=== PATIENT | female | born 1945 | race Caucasian/White ===

== ENCOUNTER 2018-03-05 00:25 | Outpatient (CLI) | payer OTHER, SELFPAY ==
--- NOTE | 2018-03-05 09:36 | DI.MAMMO_ITS ---
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 Comparison with prior examinations. Breast density C. No masses or microcalcifications are seen. There is nothing to suggest malignancy. IMPRESSION: Negative mammogram. Routine screening is recommended. Category I. MQSA ASSESSMENT OF FINDINGS: Negative. Category 1. Patient will receive a letter notifying them of these results. Bi-RADS category C. The breasts are heterogeneously dense, which may obscure small masses.
== END 2018-03-05 00:45 ==
PROVIDERS: PCP Nurse Practitioner Family; Visit Provider Nurse Practitioner Family
DX: Z12.31 Encounter for screening mammogram for malignant neoplasm of breast (principal); D05.10 Intraductal carcinoma in situ of unspecified breast
CPT/HCPCS: 77063; 77067

== ENCOUNTER 2018-04-03 10:53 | Outpatient (REF) | payer OTHER, SELFPAY ==
[2018-04-03 12:19] LABS: Cholesterol 203 mg/dL (50-200); HDL Cholesterol 69 mg/dL (40-60); LDL CHOLESTEROL 121 mg/dL (<100); TSH (W/Ref FT4) 0.37 uIU/mL (0.358-3.74); Triglyceride 56 mg/dL (30-150)
[2018-04-03 14:34] LABS: Vitamin D 25 Total 14.8 ng/ml (30-100)
== END 2018-04-03 11:13 ==
LOC: NCHCN 10:53
PROVIDERS: PCP Nurse Practitioner Family; Visit Provider Nurse Practitioner Family
DX: E55.9 Vitamin D deficiency, unspecified (principal); R76.0 Raised antibody titer; M25.561 Pain in right knee; M19.90 Unspecified osteoarthritis, unspecified site; M25.50 Pain in unspecified joint; D05.10 Intraductal carcinoma in situ of unspecified breast; E66.9 Obesity, unspecified
CPT/HCPCS: 80061; 82306; 83721; 84443

== ENCOUNTER 2018-09-18 10:49 | Outpatient (REF) | payer OTHER, SELFPAY ==
[2018-09-18 21:44] LABS: Vitamin D 25 Total 20.6 ng/ml (30-100)
== END 2018-09-18 11:09 ==
LOC: NCHCN 10:49
PROVIDERS: PCP Nurse Practitioner Family; Visit Provider Nurse Practitioner Family
DX: E55.9 Vitamin D deficiency, unspecified (principal); E78.5 Hyperlipidemia, unspecified; E03.9 Hypothyroidism, unspecified; R60.0 Localized edema
CPT/HCPCS: 82306

== ENCOUNTER 2019-03-09 00:28 | Outpatient (CLI) | payer OTHER, SELFPAY ==
--- NOTE | 2019-03-09 10:00 | DI.MAMMO_ITS ---
SYMPTOM/DIAGNOSIS: DUCTAL CARCINOMA IN SITU D05.10, SCREENING Z12.31 MAMMOGRAM: 03/09 Mammograms were interpreted according to the usual protocol including computer analysis with CAD system, tomosynthesis and C view imaging. The breasts are heterogeneously dense. The patient has reportedly had a prior right lumpectomy for breast carcinoma. No mass or clumped microcalcification identified in either breast. The current examination is compared with previous examinations including Mar 2018 and there has been no gross interval change in appearance in comparison with the previous studies. CONCLUSION: No specific evidence of malignancy at this time. Routine screening examinations are suggested at yearly intervals due to the family history of breast carcinoma. Category 1, breast density category C. SA ASSESSMENT OF FINDINGS: Negative. Category 1. Patient will receive a letter notifying them of these results. Bi-RADS category C. The breasts are heterogeneously dense, which may obscure small masses.
== END 2019-03-09 00:48 ==
PROVIDERS: PCP Nurse Practitioner Family; Visit Provider Nurse Practitioner Family
DX: Z12.31 Encounter for screening mammogram for malignant neoplasm of breast (principal); D05.11 Intraductal carcinoma in situ of right breast; Z80.3 Family history of malignant neoplasm of breast; Z85.3 Personal history of malignant neoplasm of breast
CPT/HCPCS: 77063; 77067

== ENCOUNTER 2019-04-09 10:42 | Outpatient (REF) | payer OTHER, SELFPAY ==
[2019-04-09 13:02] LABS: Calculated LDL 139 mg/dL; Cholesterol 220 mg/dL (50-200); HDL Cholesterol 69 mg/dL (40-60); TSH (W/Ref FT4) 0.24 uIU/mL (0.36-3.74); Triglyceride 60 mg/dL (30-150)
[2019-04-09 13:15] LABS: Vitamin D 25 Total 17.8 ng/ml (30-100)
[2019-04-09 15:14] LABS: FREE T4 1.32 ng/dL (0.76-1.46)
== END 2019-04-09 11:02 ==
LOC: NCHCN 10:42
PROVIDERS: PCP Nurse Practitioner Family; Visit Provider Nurse Practitioner Family
DX: Z00.00 Encounter for general adult medical examination without abnormal findings (principal); E78.5 Hyperlipidemia, unspecified; E03.9 Hypothyroidism, unspecified; E55.9 Vitamin D deficiency, unspecified; N39.3 Stress incontinence (female) (male); K30 Functional dyspepsia; R60.0 Localized edema; M19.90 Unspecified osteoarthritis, unspecified site
CPT/HCPCS: 80061; 82306; 84439; 84443

== ENCOUNTER 2019-05-22 10:24 | Outpatient (REF) | payer OTHER, SELFPAY ==
[2019-05-22 21:17] LABS: TSH (W/Ref FT4) 0.67 uIU/mL (0.36-3.74)
== END 2019-05-22 10:44 ==
LOC: NCHCN 10:24
PROVIDERS: PCP Nurse Practitioner Family; Visit Provider Nurse Practitioner Family
DX: E03.9 Hypothyroidism, unspecified (principal)
CPT/HCPCS: 84443

== ENCOUNTER 2020-01-15 09:39 | Outpatient (CLI) | payer OTHER, SELFPAY ==
--- NOTE | 2020-01-15 13:12 | DI.RAD_ITS ---
EXAM: XR TIB/FIB LT CLINICAL HISTORY: KNEE PAIN M25.561, CHRONIC LEG PAIN M79.606 TECHNIQUE: COMPARISON: CR XR ANKLE RT COMPLETE from 01/15/2020 CR XR KNEE RT 3V AP,LAT,LEMUEL from 01/15/2020 CR XR KNEE LT 3V AP,LAT,LEMUEL from 01/15/2020 CR XR ANKLE LT COMPLETE from 01/15/2020 FINDINGS: Lower extremity views were obtained including three views of the knee, two views of the leg, and thre e views of the ankle. There is moderate narrowing of the medial and lateral tibiofemoral cartilaginous joint space and jason llofemoral cartilaginous joint space. There are prominent hypertrophic marginal osteophytes involvin g all 3 joints of the knee. There is an approximately 1 cm in diameter ossific body projected piledriver carpenter iorly which may represent intra-articular loose body or which could be extra-articular. No other significant abnormality of the tibia or fibula. The ankle mortise is well maintained. The tibiotalar and talofibular joints are well maintained. Th ere are moderate degenerative changes of the joints of the midfoot and there are small attachment ost eophytes the plantar fascia and Achilles insertions on the calcaneus. IMPRESSION: Degenerative changes as described above predominantly involving the joints of the knee.
--- NOTE | 2020-01-15 13:12 | DI.RAD_ITS ---
EXAM: XR KNEE LT 3V AP,LAT,LEMUEL CLINICAL HISTORY: KNEE PAIN M25.561 TECHNIQUE: COMPARISON: CR XR ANKLE RT COMPLETE from 01/15/2020 CR XR TIB/FIB RT from 01/15/2020 CR XR KNEE RT 3V AP,LAT,LEMUEL from 01/15/2020 FINDINGS: Three views of the knee, two views of the leg, and three views of the ankle were obtained. There are moderate degenerative changes of all 3 joints of the knee with cartilaginous joint space narrowing a nd marginal osteophyte formation. No additional significant findings involving the tibia or fibula. The ankle mortise is well maintained. No significant degenerative changes involving the tibiotalar and talofibular joints. Moderate degenerative changes of the midfoot noted. Attachment osteophytes of the calcaneus at Achilles and plantar fascia insertions noted. IMPRESSION: Degenerative changes as described above, predominantly involving the knee.
== END 2020-01-15 09:59 ==
PROVIDERS: PCP Nurse Practitioner Family; Visit Provider Nurse Practitioner Family
DX: M25.561 Pain in right knee (principal); M17.0 Bilateral primary osteoarthritis of knee; M19.071 Primary osteoarthritis, right ankle and foot; M19.072 Primary osteoarthritis, left ankle and foot; M79.606 Pain in leg, unspecified
CPT/HCPCS: 73562; 73590; 73610

== ENCOUNTER 2020-05-23 09:20 | Outpatient (REF) | payer OTHER, SELFPAY ==
[2020-05-23 22:16] LABS: TSH (W/Ref FT4) 3.94 uIU/mL (0.36-3.74)
[2020-05-23 22:33] LABS: FREE T4 1.05 ng/dL (0.76-1.46)
[2020-05-23 23:19] LABS: Vitamin D 25 Total 16.9 ng/ml (30-100)
== END 2020-05-23 09:40 ==
LOC: NCHCN 09:20
PROVIDERS: PCP Nurse Practitioner Family; Visit Provider Nurse Practitioner Family
DX: Z00.00 Encounter for general adult medical examination without abnormal findings (principal); E55.9 Vitamin D deficiency, unspecified; E03.9 Hypothyroidism, unspecified; K30 Functional dyspepsia
CPT/HCPCS: 82306; 84439; 84443

== ENCOUNTER 2020-06-01 01:11 | Outpatient (CLI) | payer OTHER, SELFPAY ==
--- NOTE | 2020-06-01 | DI.MAMMO_ITS ---
EXAM: MG MAMMO SCREENING 60 MIN DUR CLINICAL HISTORY: PERSONAL H/O BREAST CA,Z85.3, SCREENING. TECHNIQUE: Bilateral full field digital CC and MLO mammographic images were obtained with 3D tomosyn thesis and utilizing computer aided detection (CAD). COMPARISON: Prior mammograms dating back to 2010, the most recent being March 2019. Prior left breast ultrasound October 2009 was reviewed. This patient had prior right lumpectomy for malignancy FINDINGS: Fibroglandular tissue is moderately dense, this decreasing the sensitivity of the mammogram for findi ng in underlying lesions There are no new significant radiograph findings in the left breast. In the right breast there is-in of a noncalcified nodule measuring 5 x 4 millimeters, located approxi mately 5 centimetres in from the nipple. More evident than on prior studies and also seen on 3D imag ing. There are no malignant-appearing microcalcifications groups in this region nor elsewhere in eit her breast. There is no new architectural distortion nor skin thickening-retraction. IMPRESSION: Moderately dense fibroglandular tissue. No radiographic evidence of malignancy in the left breast. Subtle noncalcified lobulated right breast nodule. Additional spot compression view performed today' s equivocal. Breast ultrasound recommended. BI-RADS Category 0 - Assessment Incomplete: Need additional imaging evaluation Breast Density - Category C - Heterogeneously dense Breast density Category C or D implies that the patient has dense breast tissue. Dense breast tissue can make it harder to find cancer on a mammogram. Dense breast tissue is also associated with an incr eased risk of breast cancer. This information about the result of the mammogram report was provided to the patient to raise their awareness. Use this report when you speak with the patient about their risks for breast cancer, which includes their family history. At that time, you may recommend additional screening tests (Ultrasoun d or MRI) as these tests may add significant information. A negative radiographic report should not delay biopsy if a dominant or clinically suspicious mass is present. Up to ten percent of cancers are not identified on mammography. A negative report may reinforce clinical impression. Adenosis and dense breasts may obscure an underlying neoplasm. False positive reports average 6 to 10%. Patient will receive a letter notifying them of these results.
== END 2020-06-01 01:31 ==
PROVIDERS: PCP Nurse Practitioner Family; Visit Provider Nurse Practitioner Family
DX: Z12.31 Encounter for screening mammogram for malignant neoplasm of breast (principal); Z85.3 Personal history of malignant neoplasm of breast; N63.10 Unspecified lump in the right breast, unspecified quadrant
CPT/HCPCS: 77063; 77067

== ENCOUNTER 2020-06-08 01:39 | Outpatient (CLI) | payer OTHER, SELFPAY ==
--- NOTE | 2020-06-08 | DI.US_ITS ---
EXAM: US BREAST RT COMPLETE CLINICAL HISTORY: F/U MAMMO, RT BREAST NODULE TECHNIQUE: Ultrasound right breast performed using standard protocol. COMPARISON: Prior mammograms reviewed, most recent being 06/01/2020 FINDINGS: All 4 quadrants were scanned. There is no evidence of solid or significant cystic lesion. No findin gs in the immediate retroareolar region. IMPRESSION: Negative right breast ultrasound. Appropriate follow-up is keep this patient yearly mammogram schedule, with earlier imaging if a self detected breast changes noted. BI-RADS Category 2 - Benign Findings DATA REPOSITORY:
== END 2020-06-08 01:59 ==
PROVIDERS: PCP Nurse Practitioner Family; Visit Provider Nurse Practitioner Family
DX: R92.8 Other abnormal and inconclusive findings on diagnostic imaging of breast (principal)
CPT/HCPCS: 76642

== ENCOUNTER 2020-08-25 18:05 | Outpatient (REF) | payer OTHER, SELFPAY ==
[2020-08-25 13:54] LABS: FREE T4 1.02 ng/dL (0.76-1.46); TSH 4.65 uIU/mL (0.36-3.74)
== END 2020-08-25 18:06 | disposition home or self-care (01) ==
LOC: NCHCN 18:05
PROVIDERS: PCP Nurse Practitioner Family; Visit Provider Nurse Practitioner Family
DX: E03.9 Hypothyroidism, unspecified (principal)
CPT/HCPCS: 84439; 84443

== ENCOUNTER 2020-12-05 13:22 | Outpatient (REF) | payer OTHER, SELFPAY ==
[2020-12-05 13:13] LABS: TSH (W/Ref FT4) 1.37 uIU/mL (0.36-3.74)
[2020-12-05 13:27] LABS: Vitamin D 25 Total 15.9 ng/mL (30-100)
== END 2020-12-05 13:23 | disposition home or self-care (01) ==
LOC: NCHCN 13:22
PROVIDERS: PCP Nurse Practitioner Family; Visit Provider Nurse Practitioner Family
DX: E03.9 Hypothyroidism, unspecified (principal); E55.9 Vitamin D deficiency, unspecified
CPT/HCPCS: 82306; 84443

== ENCOUNTER 2021-05-26 14:51 | Outpatient (REF) | payer OTHER, SELFPAY ==
[2021-05-26 17:38] LABS: TSH (W/Ref FT4) 1.37 uIU/mL (0.36-3.74)
[2021-05-29 02:29] LABS: Vitamin D 25 Total 19.9 ng/mL (30-100)
== END 2021-05-26 14:52 | disposition home or self-care (01) ==
LOC: NCHCN 14:51
PROVIDERS: PCP Nurse Practitioner Family; Visit Provider Nurse Practitioner Family
DX: D05.10 Intraductal carcinoma in situ of unspecified breast (principal); E55.9 Vitamin D deficiency, unspecified
CPT/HCPCS: 82306; 84443

== ENCOUNTER 2021-07-19 01:32 | Outpatient (CLI) | payer OTHER, SELFPAY ==
--- NOTE | 2021-07-19 09:28 | DI.MAMMO_ITS ---
Exam(s) MG MAMMO SCREENING 60 MIN DUR EXAM: MG MAMMO SCREENING 60 MIN DUR CLINICAL HISTORY: SCREENING, Z12.31; H/O BREAST CA, Z85.3 TECHNIQUE: Mammograms were interpreted according to the usual protocol including computer analysis w [email or web address] CAD system, tomosynthesis and C-view imaging. COMPARISON: FINDINGS: The breasts are heterogeneously dense. No dominant mass or clumped microcalcification is identified in either breast. The current examination is compared with previous examinations including May 2020 and there has been no gross interval change in appearance in comparison with the prior studies. IMPRESSION: No specific evidence of malignancy at this time. Routine screening examinations are suggested at yea rly intervals due to the history of breast carcinoma. BI-RADS Category 1 - Negative Breast Density - Category C - Heterogeneously dense
== END 2021-07-19 01:52 ==
PROVIDERS: PCP Nurse Practitioner Family; Visit Provider Nurse Practitioner Family
DX: Z12.31 Encounter for screening mammogram for malignant neoplasm of breast (principal); R92.8 Other abnormal and inconclusive findings on diagnostic imaging of breast; Z85.3 Personal history of malignant neoplasm of breast
CPT/HCPCS: 77063; 77067

== ENCOUNTER 2021-07-31 15:55 | Outpatient (REF) | payer OTHER, SELFPAY ==
[2021-07-31 15:15] LABS: Anion Gap 6.3 mmol/L (3-11); BUN 15 mg/dL (7-18); CO2 30.7 mmol/L (21.0-32.0); CREATININE 0.6 mg/dL (0.55-1.02); Chloride 105 mmol/L (98-107); Glucose 82 mg/dL (74-106); Potassium 4.7 mmol/L (3.5-5.1); Sodium 142 mmol/L (136-145)
== END 2021-07-31 15:56 | disposition home or self-care (01) ==
LOC: NCHCN 15:55
PROVIDERS: PCP Nurse Practitioner Family; Visit Provider Nurse Practitioner Family
DX: E03.9 Hypothyroidism, unspecified (principal); R20.2 Paresthesia of skin; K30 Functional dyspepsia
CPT/HCPCS: 80048

== ENCOUNTER 2021-08-28 14:54 | Outpatient (REF) | payer OTHER, SELFPAY ==
[2021-08-28 15:34] LABS: Anion Gap 9.2 mmol/L (3-11); BUN 16 mg/dL (7-18); CO2 27.8 mmol/L (21.0-32.0); CREATININE 0.7 mg/dL (0.55-1.02); Calcium 9.3 mg/dL (8.5-10.1); Chloride 104 mmol/L (98-107); Glucose 120 mg/dL (74-106); Potassium 4.8 mmol/L (3.5-5.1); Sodium 141 mmol/L (136-145)
== END 2021-08-28 14:55 | disposition home or self-care (01) ==
LOC: NCHCN 14:54
PROVIDERS: PCP Nurse Practitioner Family; Visit Provider Nurse Practitioner Family
DX: I10 Essential (primary) hypertension (principal); E66.9 Obesity, unspecified
CPT/HCPCS: 80048

== ENCOUNTER 2021-09-11 11:36 | Outpatient (REF) | payer OTHER, SELFPAY ==
[2021-09-11 14:40] LABS: Calculated LDL 138 mg/dL (<100); Cholesterol 213 mg/dL (<200); HDL Cholesterol 59 mg/dL (40-60); Triglyceride 84 mg/dL (<150)
== END 2021-09-11 11:37 | disposition home or self-care (01) ==
LOC: NCHCN 11:36
PROVIDERS: PCP Nurse Practitioner Family; Visit Provider Nurse Practitioner Family
DX: I10 Essential (primary) hypertension (principal); E03.9 Hypothyroidism, unspecified; E78.5 Hyperlipidemia, unspecified; K30 Functional dyspepsia; E66.9 Obesity, unspecified; M25.59 Pain in other specified joint
CPT/HCPCS: 80061

== ENCOUNTER 2022-04-23 14:08 | Outpatient (REF) | payer OTHER, SELFPAY ==
[2022-04-23 15:56] LABS: TSH (W/Ref FT4) 0.35 uIU/mL (0.36-3.74)
[2022-04-23 16:15] LABS: FREE T4 1.23 ng/dL (0.76-1.46)
[2022-04-23 16:54] LABS: Vitamin D 25 Total 16.2 ng/mL (30-100)
== END 2022-04-23 14:09 | disposition home or self-care (01) ==
LOC: NCHCN 14:08
PROVIDERS: PCP Nurse Practitioner Family; Visit Provider Nurse Practitioner Family
DX: I10 Essential (primary) hypertension (principal); E55.9 Vitamin D deficiency, unspecified; E03.9 Hypothyroidism, unspecified; E78.5 Hyperlipidemia, unspecified
CPT/HCPCS: 82306; 84439; 84443

== ENCOUNTER 2022-07-23 11:14 | Outpatient (REF) | payer OTHER, SELFPAY ==
[2022-07-23 16:03] LABS: Anion Gap 6.4 mmol/L (3-11); BUN 16 mg/dL (7-18); CO2 30.6 mmol/L (21.0-32.0); CREATININE 0.7 mg/dL (0.55-1.02); Calcium 9.6 mg/dL (8.5-10.1); Chloride 105 mmol/L (98-107); Estimated GFR 90.14 (mL/min/1.73m2); Glucose 93 mg/dL (74-106); Potassium 5.1 mmol/L (3.5-5.1); Sodium 142 mmol/L (136-145); TSH (W/Ref FT4) 0.56 uIU/mL (0.36-3.74)
[2022-07-23 16:41] LABS: Vitamin D 25 Total 16.5 ng/mL (30-100)
== END 2022-07-23 11:15 | disposition home or self-care (01) ==
LOC: NCHCN 11:14
PROVIDERS: PCP Nurse Practitioner Family; Visit Provider Nurse Practitioner Family
DX: I10 Essential (primary) hypertension (principal); E55.9 Vitamin D deficiency, unspecified; R60.0 Localized edema
CPT/HCPCS: 80048; 82306; 84443

== ENCOUNTER 2022-08-01 02:37 | Outpatient (CLI) | payer OTHER, SELFPAY ==
--- NOTE | 2022-08-01 | DI.MAMMO_ITS ---
Exam(s) MG MAMMO SCREENING 60 MIN DUR EXAM: MAMMO SCREENING 60 MIN DUR CLINICAL HISTORY: SCREENING, PERSONAL H/O BREAST CA.Z12.31,Z85.3 TECHNIQUE: Mammograms were interpreted according to the usual protocol including computer analysis w [employer] CAD system, tomosynthesis and C-view imaging. COMPARISON: 2012 through 2021 FINDINGS: The breasts are composed of heterogeneously dense fibroglandular densities, Breast Density category C . No suspicious masses or suspicious microcalcifications are seen. No skin thickening or abnormal axillary lymph nodes are seen. There has been no significant change from prior exams. IMPRESSION: BI-RADS Category 1, Negative mammogram. Yearly screening mammography is recommended. Breast Density Category C, heterogeneously Dense. The mammogram demonstrates the patient's breast tissue is dense. Dense breast tissue is very common a nd is not abnormal but dense breast tissue can make it harder to find cancer on a mammogram. Also, de nse breast tissue may increase breast cancer risk. This information about the result of the mammogram report was provided to the patient to raise their awareness. Use this report when you speak with the patient about their risks for breast cancer, which includes their family history. At that time, you may recommend additional screening tests (Ultrasound or MRI) as they might be useful based on their r isk. A negative radiographic report should not delay biopsy if a dominant or clinically suspicious mass is present. Up to ten percent of cancers are not identified on mammography. A negative report may reinforce clinical impression. Adenosis and dense breasts may obscure an underlying neoplasm. False positive reports average 6 to 10%.
== END 2022-08-01 02:57 ==
PROVIDERS: PCP Nurse Practitioner Family; Visit Provider Nurse Practitioner Family
DX: Z12.31 Encounter for screening mammogram for malignant neoplasm of breast (principal); R92.8 Other abnormal and inconclusive findings on diagnostic imaging of breast
CPT/HCPCS: 77063; 77067

== ENCOUNTER 2022-12-03 14:21 | Outpatient (CLI) | payer OTHER, SELFPAY ==
--- NOTE | 2022-12-03 13:45 | DI.RAD_ITS ---
Exam(s) XR STANDING ALIGNMENT EXAM: XR STANDING ALIGNMENT CLINICAL HISTORY: eval alignment for TKA. TECHNIQUE: 2D digital imaging was performed. Four images were obtained. COMPARISON: CR XR KNEE RT 3V AP,LAT,LEMUEL from 01/15/2020 CR XR ANKLE RT COMPLETE from 01/15/2020 CR XR TIB/FIB RT from 01/15/2020 CR XR KNEE LT 3V AP,LAT,LEMUEL from 01/15/2020 FINDINGS: BONES: There is mild joint space narrowing of the hips bilaterally. [id number]-sv-qmukmanb degenerative ch anges of the hips are seen bilaterally characterized by joint space narrowing and periarticular spurr ing. The ankles are well maintained.There is no significant leg length discrepancy. SOFT TISSUE: Normal. IMPRESSION: [id number] osteoarthritis of the knees. DATA REPOSITORY: RADIATION DOSE DELIVERED:
== END 2022-12-03 14:22 | disposition home or self-care (01) ==
LOC: DIORS 14:21
PROVIDERS: PCP Nurse Practitioner Family; Referring Provider Nurse Practitioner Family; Visit Provider Student in an Organized Health Care Education/Training Program
DX: M17.0 Bilateral primary osteoarthritis of knee (principal)
CPT/HCPCS: 77073

== ENCOUNTER 2023-01-17 02:32 | Outpatient (CLI) | payer OTHER, SELFPAY ==
[2023-01-17 14:18] LABS: HCT 38.5 % (36.0-46.0); HGB 12.1 g/dL (11.2-15.7); MCH 27.9 pg (27.0-33.0); MCHC 31.4 % (32.0-36.0); MCV 89 fL (80-95); MPV 9.7 fL (8.0-11.0); Platelet Count 290 10^3/uL (130-400); RBC 4.33 10^6/uL (3.93-5.22); RDW 12.5 % (11.7-14.6); RDW-SD 40.9 fL; WBC 8.87 10^3/uL (4.4-10.8)
[2023-01-17 15:09] LABS: Anion Gap 7.1 mmol/L (3-11); BUN 16 mg/dL (7-18); CO2 27.9 mmol/L (21.0-32.0); CREATININE 0.8 mg/dL (0.55-1.02); Calcium 8.6 mg/dL (8.5-10.1); Chloride 107 mmol/L (98-107); Estimated GFR 76.31 (mL/min/1.73m2); Glucose 120 mg/dL (74-106); Potassium 4.1 mmol/L (3.5-5.1); Sodium 142 mmol/L (136-145)
== END 2023-01-17 02:33 | disposition home or self-care (01) ==
LOC: LBO 02:33
PROVIDERS: PCP Nurse Practitioner Family; Visit Provider Student in an Organized Health Care Education/Training Program
DX: M17.12 Unilateral primary osteoarthritis, left knee (principal); Z01.818 Encounter for other preprocedural examination
CPT/HCPCS: 36415; 80048; 85027

== ENCOUNTER 2023-01-17 13:12 | Outpatient (CLI) | payer OTHER, SELFPAY ==
--- NOTE | 2023-01-17 13:19 | DI.RAD_ITS ---
Exam(s) XR KNEE LT 1V EXAM: XR KNEE LT 1V CLINICAL HISTORY: pre op L TKA. TECHNIQUE: 2D digital imaging was performed of the left knee. Two images were obtained. Lateral vi ews views were obtained. COMPARISON: CR XR KNEE LT 3V AP,LAT,LEMUEL from 01/15/2020 CR XR STANDING ALIGNMENT from 12/03/2022 FINDINGS: This is a limited examination. Lateral views only were obtained with a marker ball. There again see n marked degenerative changes seen at the patellofemoral joint with loss of the joint space and peria rticular spurring. No joint effusion is seen. IMPRESSION: Limited examination with only lateral views. Marked osteoarthritis of the patellofemoral joint is no frantz. DATA REPOSITORY: RADIATION DOSE DELIVERED:
== END 2023-01-17 13:13 | disposition home or self-care (01) ==
LOC: DIORS 13:12
PROVIDERS: PCP Nurse Practitioner Family; Referring Provider Nurse Practitioner Family; Visit Provider Physician Assistant
DX: M17.12 Unilateral primary osteoarthritis, left knee (principal); Z01.818 Encounter for other preprocedural examination
CPT/HCPCS: 73560

== ENCOUNTER 2023-01-23 08:22 | Day surgery (SDC) | payer OTHER, SELFPAY ==
[2023-01-23] VITALS (14 sets, daily range): BP systolic 132–159; BP diastolic 61–89; PULSE 51–89; RESP 16–20; TEMP 36.2–37.1; O2SAT 94–98; BMI 32.4
--- NOTE | 2023-01-23 08:57 | W.ANESPRE ---
General Info Date of Service Date Performed: 01/23/23 Height: 5 ft 6 in Weight: 91.1 kg Body Mass Index (BMI): 32.4 Surgical Procedure: Operation Date: 01/23/23 11:10 Proposed Procedure Side Surgeon p Knee Total Arthroplasty, CEMENTLESS CR Left Andrea Box MD Meds Allergies and Home Medications Allergies Allergy/AdvReac Type Severity Reaction Status Date / Time erythromycin base AdvReac Intermediate Nausea Unverified 01/23/23 08:36 [Erythromycin Base] Home Medication Medication Instructions Recorded levothyroxine 25 mcg tablet 12.5 mcg PO DAILY 10/28/13 cetirizine 10 mg tablet 10 mg PO DAILY PRN 12/03/22 losartan 25 mg tablet 25 mg PO HS 12/03/22 acetaminophen 500 mg tablet 1,000 mg PO TID #90 tabs 01/23/23 aspirin 81 mg tablet,delayed 81 mg PO BID #60 tabs 01/23/23 release celecoxib 200 mg capsule 200 mg PO BID #60 caps 01/23/23 dexamethasone 4 mg tablet 4 mg PO DAILY #2 tabs 01/23/23 gabapentin 300 mg capsule 300 mg PO QHS #14 caps 01/23/23 oxycodone 5 mg tablet 5 mg PO Q4H PRN pain #20 tabs 01/23/23 pantoprazole 40 mg tablet,delayed 40 mg PO DAILY #30 tabs 01/23/23 release Current Visit Medications: Current Medications Generic Name Dose Route Start Last Admin Trade Name Freq PRN Reason Stop Dose Admin Acetaminophen 1,000 mg 01/23/23 06:00 Acetaminophen 500 Mg Tab PO 01/23/23 16:00 PREOP TERESA Acetaminophen 1,000 mg 01/23/23 07:25 Acetaminophen 500 Mg Tab PO 02/22/23 08:29 TID PRN Analgesia Celecoxib 400 mg 01/23/23 06:00 Celecoxib 200 Mg Cap PO 01/23/23 16:00 PREOP TERESA Docusate Sodium 100 mg 01/23/23 07:25 Docusate Sodium 100 Mg Cap PO 02/22/23 07:24 BID PRN PRN Constipation Gabapentin 300 mg 01/23/23 06:00 Gabapentin 300 Mg Cap PO 01/23/23 16:00 PREOP TERESA Tranexamic Acid 1,000 mg/ 60 mls @ 360 mls/hr 01/23/23 06:00 Sodium Chloride IVPB 01/23/23 16:00 PREOP TERESA Ringer's Solution 1,000 mls @ 80 mls/hr 01/23/23 06:00 IV 01/23/23 23:59 INFUSION TERESA Cefazolin Sodium/Dextrose 2 gm in 50 mls @ 100 mls/hr 01/23/23 06:00 Ancef Duplex IVPB 01/23/23 23:59 PREOP TERESA IV Miscellaneous Supplies 1 each 01/23/23 06:00 Iv Access IV 01/23/23 23:59 DIRECTED TERESA Ondansetron HCl 4 mg 01/23/23 07:25 Ondansetron 4 Mg/2 Ml Vial IVP 02/22/23 07:24 Q6H PRN PRN Nausea Oxycodone HCl 0 mg 01/23/23 07:25 Oxycodone 5 Mg Tab PO 02/22/23 07:24 Q3H PRN PRN Pain Polyethylene Glycol 17 gm 01/23/23 07:25 Polyethylene Glycol 3350 17 Gm Packet PO 02/22/23 07:24 BID PRN PRN Constipation Sodium Chloride 0 ml 01/23/23 06:00 Normal Saline Flush 10 Ml Syr IV 01/23/23 23:59 PRN PRN Sodium Chloride 0 ml 01/23/23 06:00 Normal Saline 10 Ml Vial IJ 01/23/23 23:59 DIRECTED PRN Sterile Water 0 ml 01/23/23 06:00 Water,Injection,Sterile 10 Ml Vial IJ 01/23/23 23:59 DIRECTED PRN PFSH Active Problems Active Problems: Problem Status Onset Code Osteoarthritis of right knee M17.11 Osteoarthritis of left knee M17.12 Disorder of sacrum M53.3 Spondylosis of lumbar region without myelopathy or radiculopathy M47.816 Lumbosacral spondylosis without myelopathy M47.817 Medical History Medical History Chronic cough Dyspepsia Eczema History of breast cancer Ductal carcinoma in situ History of elevated antinuclear antibody (DELICIA) Hyperlipidemia Hypertension Hypothyroidism s/p DOTSON thyroid Stress incontinence Varicose vein of leg Surgical History Surgical History Cataracts, bilateral History of lumpectomy of both breasts Hx of tonsillectomy Tobacco Smoking/Tobacco Use Status: Former Tobacco Use Alcohol Alcohol Intake: current Alcohol intake frequency: a few times a week Alcohol type: beer Substance Use Substance use: Never Substance use type: does not use Vital Signs and Lab Results Vital Signs Most Recent Vital Signs in EMR: Most Recent Vital Signs Temp Pulse Resp BP Pulse Ox 37.1 C 72 18 152/83 H 97 01/23/23 08:27 01/23/23 08:27 01/23/23 08:27 01/23/23 08:27 01/23/23 08:27 Lab Results Blood Type / Crossmatch: No Data to Display Complete Blood Count: White Blood Count 8.87 10^3/uL (4.4-10.8) 01/17/23 14:10 Red Blood Count 4.33 10^6/uL (3.93-5.22) 01/17/23 14:10 Hemoglobin 12.1 g/dL (11.2-15.7) 01/17/23 14:10 Hematocrit 38.5 % (36.0-46.0) 01/17/23 14:10 Platelet Count 290 10^3/uL (130-400) 01/17/23 14:10 Complete Metabolic Panel: Sodium 142 mmol/L (136-145) 01/17/23 14:10 Potassium 4.1 mmol/L (3.5-5.1) 01/17/23 14:10 Chloride 107 mmol/L (98-107) 01/17/23 14:10 Carbon Dioxide 27.9 mmol/L (21.0-32.0) 01/17/23 14:10 BUN 16 mg/dL (7-18) 01/17/23 14:10 Creatinine 0.8 mg/dL (0.55-1.02) 01/17/23 14:10 Est GFR (CKD-EPI 2020) 76.31 (mL/min/1.73m2) 01/17/23 14:10 Calcium 8.6 mg/dL (8.5-10.1) 01/17/23 14:10 Glucose 120 mg/dL (74-106) H 01/17/23 14:10 Liver Function Panel: No Data to Display Coagulation Panel: No Data to Display Cardiac Panel: No Data to Display Arterial Blood Gas: No Data to Display Venous Blood Gas: No Data to Display Pancreas Panel: No Data to Display Thyroid Panel: No Data to Display Infectious Disease: No Data to Display Blood Cultures: No Data to Display Toxicology Panel: No Data to Display Anesthesia Assessment and Plan Anesthesia History Personal History: No History of Anesthesia Complications Family History: No Family History of Anesthesia Complications Exercise Tolerance Exercise Tolerance: Metabolic Equivalents>4 Pertinent Negatives Pertinent Negatives: No Symptoms of GERD Cardiac & Pulmonary Exam Cardiac Exam: Normal S1/S2 Heart Sounds Pulmonary Exam: Clear Bilateral Breath Sounds Implantable Cardiac Device Does patient have a Pacemaker or an ICD?: No Airway Exam Known Difficult Airway: No Mallampati Class: 2 Mouth Opening: Normal (> 3cm) Thyromental Distance: Less than 3 cm Neck Range of Motion: Full ROM Neck Circumference: Normal Teeth Condition: Normal Dentition ASA Classification ASA Score: ASA 2 Emergency Case?: No NPO Status NPO Status: NPO Clears >2 hours, Solids >8 hours Anesthesia Plan Resuscitation Status: Full Code Anesthesia Technique: Spinal Anesthesia Airway Planned: Natural Airway Pain Management: Surgeon and patient request nerve block Monitors Used: Standard Monitors
[2023-01-23] MEDS: Celecoxib 200 MG CAP 400 MG PO (09:07)
[2023-01-23] MEDS: Gabapentin 300 MG CAP PO (09:07)
[2023-01-23] MEDS: Acetaminophen 500 MG TAB 1000 MG PO (09:07)
[2023-01-23] MEDS: Lactated Ringers 1,000 ML 80 ML IV (09:20)
--- NOTE | 2023-01-23 10:21 | W.ANESNERVE ---
Nerve Block Single Injection Procedure Date and Time Date Performed: 01/23/23 Procedure Start: 10:10 Location Where Procedure Performed Procedure Location: Day Surgery Unit Reason Performed: Postoperative Analgesia Requesting Provider: Andrea Box Timeout Performed Timeout Performed: Yes Monitoring Used ECG, Blood Pressure, SpO2 and See EMR for corresponding vital signs Sterility Sterility: Hand Hygiene, Surgical Cap, Surgical Mask, Sterile Gloves and Chlorhexidine Sedation Given During Procedure Sedation Given (Indicate Dose Given): No Sedation given Patient Mental Status Patient Mental Status: Awake Nerve Block 1st Nerve Block: Laterality: Left Block Type: Adductor Canal Ultrasound Image Saved?: Yes Needle / Catheter Used: 100mm SonoPlex II Local Anesthetic Bolus (Indicate Dose Given): Lidocaine used for local infiltration of skin, Injected in 3-5ml increments after negative blood aspiration and Bupivacaine 0.25% Dose:: 20ml Additives (Indicate Dose Given): None Ultrasound: Sterile probe cover and gel used Nerve Stimulator: Not Used Paresthesia: None Procedure Tolerated: No Complications and Patient tolerated well Procedure Outcome: Successful Performed By: Mack King
[2023-01-23] MEDS: ceFAZolin 2 GM/50 ML BAG IVPB (10:49)
--- NOTE | 2023-01-23 12:47 | ROE_ITS ---
Date of service: 01/23/23 Time of Service: 12:25 Operative Note Operative Note DATE OF PROCEDURE: 01/23/23 PRE-OP DIAGNOSIS: Left Knee Osteoarthritis POST-OP DIAGNOSIS: same PROCEDURE: Left Total Knee Replacement SURGEON: Andrea Box BRICK AND BLOCK MASON: Leydi Avery ANESTHESIA TYPE: Spinal Refer to Anesthesia Record ESTIMATED BLOOD LOSS: 350 PATHOLOGY: none sent TOURNIQUET TIME: 0 COMPLICATIONS: None Patient was transported to: PACU Patient's condition: stable Implants: 1. Depuy Attune Cementless Cruciate Retaining Femoral Component, Size 6 2. Depuy Attune Cementless Fixed Bearing Tibial Component, Size 5 3. Depuy Attune 6x8 CR/FB Poly 4. Depuy Attune Patellar Component, Size 35 Indications: I have seen Kandace in clinic for symptoms of knee arthritis, confirmed with radiographic findings. Kandace has exhausted nonoperative methods and was having significant limitations in daily function and desired better function and less pain. I discussed the technical details of a knee replacement. I explained the risks of the procedure to include, but not limited to, bleeding, infection, pain, stiffness, fracture, damage to nerves and vessels, damage to muscles and tendons, loosening, need for repeat procedure, blood clot and cardiopulmonary demise. Despite these risks, she elected to proceed. Findings: There was significant signs of arthritis throughout the knee focused medially and in the patellofemoral joint. Procedure Description: Kandace was greeted in the preoperative holding area where the correct side was identified and marked. The consent was reviewed with the patient and signed. The history and physical was updated. All questions were answered. Preoperative medications were administered: Acetaminophen 1000mg, Celebrex 400mg, and Gabapentin 300mg. An adductor canal block was then administered by the anesthesia team in the PACU. She was taken back to the operating room. A spinal anesthestic was then administered. The patient was placed into the supine position on the operating room table. A nonsterile tourniquet was placed high onto the leg but only used for cementing. Posts were placed for positioning during the procedure. All bony prominences were well padded. Prophylactic antibiotics in the form of Cefazolin were administered. 1g of Tranxemic Acid was given intravenously within 30 minutes of incision. The left leg was then prepped with Chloraprep and draped in a standard fashion with impervious stockinette. A second prep with Chloraprep was performed prior to application of Iodine impregnated skin protection. A timeout to confirm correct identity, side and site, procedure, allergies, anesthesia, and medical concerns was performed. With the knee in some flexion, a midline incision was made overlying the knee. Full thickness skin flaps were raised once the extensor mechanism was encountered. These were raised medially and laterally. Any bleeding was controlled with electrocautery. Once the extensor mechanism was fully exposed, a medial parapatellar arthrotomy was performed in a flexed position. All bleeding from the arthrotomy and the geniculate arteries was coagulated. A medial subperiosteal peel was performed with electrocautery to the midcoronal plane. Due to the significant varus deformity the entire medial tibial plateau was exposed. The fat pad was removed while keeping the patellar tendon protected. The anterior distal femur synovium was removed for later visualization. The ACL and PCL were resected and the anterior horn of the lateral meniscus was transected. The knee was then flexed with the patella translated as it was difficult to yodit. Large osteophytes from the tibia were removed. Large osteophytes from the femur were removed. Using a step drill, and based on preoperative templating, the femoral canal was entered. This was done with a step drill without any difficulty. The intramedullary distal femoral cut guide was inserted, set to a 6 degree valgus cut and 9mm cut thickness. The distal femoral cut guide was then held in position and pinned. With the soft tissues protected, the distal cut was performed. This was passed over a few times to ensure a planar cut. I then turned attention to the tibia. The extramedullary guide was placed onto the leg. The distal aspect was slid medial to adjust for position of center of ankle and stay in line with shaft of the tibia. Approximately 3-5 degrees of posterior slope was kept in the proximal cutting guide. The center of the guide was aligned with the PCL. The stylus was used to assess cut thickness. The medial side, most involved side, was set for a 3mm cut which corresponded to 9mm laterally. This was then held in position and pinned into place with 2 additional pins and a cross pin for stability. The medial and lateral collateral ligaments were protected and the cut was performed. With this completed, it was assessed and noted to be of appropriate dimensions. The guide was removed. A spacer block was inserted and the knee was brought into extension. The 7mm spacer block provided full extension, without hyperextension and with stability of both the medial and lateral collateral ligaments was assessed. The pins from the femur and the tibia were then removed. The distal femur was then sized. The anterior stylus was placed onto the lateral ridge of the anterior femur. This indicated a size 6 femur. The external rotation of the guide was adjusted to 3 degrees to match the epicondylar axis, perpendicular to [place]?s line. The 4-in-1 cutting guide was the placed. The posterior medial femur cut was evaluated and appeared of good thickness. The spacer block was inserted underneath the cutting guide and stability was confirmed in 90 degrees of flexion. An kiya wing was used to confirm appropriate position of the anterior cut to avoid notching. This cutting guide was ensured to be flush on the cut surface and then pinned into place with headed pins. While protecting the soft tissues, quad tendon, and collateral ligaments, the anterior and posterior cuts were performed with a saw. The central two pins were removed and the posterior and anterior chamfers were cut next. The notch-cutting guide was placed. This was pinned to lateralize the femoral component as much as possible while keeping it flush on the cut surface. This was then pinned into position. A reciprocating saw was used to make the notch cut. A rasp smoothed the cut surfaces. The medial and lateral menisci were removed. A trial femoral component was then inserted, impacted down to the cut surfaces, and the lug holes were drilled. A provisional trial tibial component was placed and the knee was brought through range of motion. The polyethylene was trialed until there was good flexion and extension with excellent stability to the medial and lateral collaterals. The patella was tracking without thumbs. A size 8mm polyethylene component provided the best range of motion and stability with less than 2mm gapping with medial and lateral stress and full extension without significant hyperextension. The tibial cut surface was fully exposed. The tibia was then sized as a 5. The tibia had been previously marked during trialing to correspond to the center of the tibial component to help with rotation. The trial was aligned to this leydi, approximately rotated to the medial 1/3rd of the tibial tubercle. The trial was pinned into place. The tibia was prepared with a reamer and a keel punch and lug holes. The knee was then brought into extension and the patella was measured as 27mm. Using the patellar clamp and cut guide, this was resected to a flat surface with at least 13mm of thickness remaining. The size 35 patella fit the best. This was oriented and then clamped into position. The lugs were drilled. The trial components were removed. The final components were opened on the back table. The periosteal and capsular tissues, especially posteriorly, around the knee were then systematically injected with a periarticular cocktail consisting of 246mg of Ropivacaine, 0.5mg of Epinephrine, 0.08mg of Clonidine, and 30mg of Ketorolac, diluted to 100cc. On the back table, with the implants opened, the cement was mixed. One batch of high viscosity cement was prepared with vacuum assistance. After the cement was ready a small amount was placed on the cut surface of the patella and the patellar button was clamped into position and held. While the cement was hardening, the cementless knee components were placed. Starting with the tibial component, the tibia was subluxed anteriorly and the lug holes of the component were lined up. The tibia was then impacted with an impactor and mallet until the tibial component was in contact with the tibia. Then, the femoral component was inserted. The lug holes were aligned and the component was impacted into position. The final polyethylene component was inserted. The knee was irrigated with Surgiphor Betadine solution. This was allowed to sit in the knee for 3 minutes and then it was irrigated out with saline. After the cement had finally cured, approximately 15min, the clamp was removed from the patella and the knee was taken through range of motion. The patella was tracking with a no-thumbs technique. The capsule was then reapproximated with a No. 1 Vicryl at multiple locations. The capsule was finally closed with a No. 2 Stratafix, barbed suture. The second dosing of 1g TXA was started. Deep tissues were then reapproximated with 0 Vicryl and 2-0 Vicryl. The skin was closed with a running 3-0 Monocryl in a subcuticular fashion. This was reinforced with skin glue. A Mepilex silver dressing was applied along with a [id number] ASHISH wrap. A CryoCuff was applied. Kandace was transferred to the hospital stretcher without difficulty an suffering no apparent complication. Kandace has a good prognosis. Physical therapy will start today and without restrictions, weight-bearing as tolerated. Aspirin 81mg BID will be used for DVT prophylaxis.
--- NOTE | 2023-01-23 13:07 | W.ANESPOSTOP ---
Postoperative Evaluation Date, Time and Location Date Performed: 01/23/23 Time Performed: 13:07 Patient Location: PACU Vital Signs Most Recent Imported Vital Signs: Most Recent Vital Signs Temp Pulse Resp BP Pulse Ox 36.6 C 52 L 16 144/63 H 95 01/23/23 12:51 01/23/23 12:51 01/23/23 12:51 01/23/23 12:51 01/23/23 12:51 Pain Score Most Recent Pain Score: Most Recent Pain Score Pain Level 0 01/23/23 12:51 Assessment Mental Status: Awake (Alert & Oriented to Patient Baseline) Airway and Respiratory Function: Patent airway with normal (patient baseline) respiratory exam Cardiovascular Function: Hemodynamically Stable Hydration Status: Adequately Hydrated Nausea & Vomiting: No Nausea or Vomiting Pain: Pt. Denies Any Pain Peripheral Nerve Block: Regional nerve block not resolved at time of post operative discharge
--- NOTE | 2023-01-23 14:05 | PDOC.DSDIS_ITS ---
Date of service: 01/23/23 Time of Service: 14:05 Discharge Plan Disposition Patient Disposition: Home Condition: Good Discharge Details Reason For Visit: L TKR Attending Provider: Andrea Box Primary Care Provider: Kavita Tapia Home Meds and New Rx's Prescriptions: New celecoxib 200 mg capsule 200 mg PO BID Qty: 60 0RF aspirin 81 mg tablet,delayed release (DR/EC) 81 mg PO BID Qty: 60 0RF acetaminophen 500 mg tablet 1,000 mg PO TID Qty: 90 3RF pantoprazole 40 mg tablet,delayed release (DR/EC) 40 mg PO DAILY Qty: 30 0RF dexamethasone 4 mg tablet 4 mg PO DAILY Qty: 2 0RF gabapentin 300 mg capsule 300 mg PO QHS Qty: 14 0RF oxycodone 5 mg tablet 5 mg PO Q4H MDD 6 tabs PRN (Reason: pain) Qty: 20 0RF Continued losartan 25 mg tablet 25 mg PO HS cetirizine 10 mg tablet 10 mg PO DAILY PRN levothyroxine 25 MCG tablet 12.5 mcg PO DAILY Discontinued acetaminophen [Tylenol Arthritis Pain] 650 mg tablet extended release 650 mg PO Q12H Discharge Instructions Additional Instructions: Total Knee Discharge Instructions Activity: The most important activity is to walk and to work on gentle motion (both flexion and extension). You should try to take short walks a few times a day. It is important that when resting you work on keeping the knee straight. Avoid putting a pillow behind the knee as this will encourage flexion. Work on range of motion exercises as provided by Physical Therapy. - Start outpatient physical therapy within 2 weeks. - You should wear the LUIS ENRIQUE hose on both legs for 2 weeks. You may remove these at night. You may also use any compression sock in place of the LUIS ENRIQUE hose. - Utilize [employer] to review exercises, see videos on exercises and obtain basic information pertaining to your surgery and your recovery. Dressing: Remove the Eder wrap by 2 days after your surgery and put on the LUIS ENRIQUE stocking given to you from the hospital. Keep the surgical dressing (underneath the EDER wrap) in place for at least one week. After the first week it may be removed and replaced with light gauze and tape or nothing. The wound and dressing may get wet after 3 days but avoid soaking the dressing or otherwise it will need to be changed. Many people prefer covering the dressing with cling wrap (saran wrap) to minimize it from getting soaked. If it gets wet, just pat dry. If it starts to peel off then it will need to be changed. Medications: - You should take Tylenol and anti-inflammatory Celebrex as your primary pain control medications. If the Celebrex is too expensive or not covered, please call the office for another alternative (Advil/Ibuprofen or Naproxen/Aleve) - You have been prescribed a stronger pain medication Oxycodone for breakthrough pain, take as needed as prescribed. - You have also been prescribed a stomach acid reduction agent Pantoprozole to help reduce stomach acid and reflux. - You have been prescribed Gabapentin to take at night for restlessness and nerve pain. - You will be taking Aspirin 81mg twice a day for DVT prevention unless instructed otherwise. - You have also been prescribed Decadron to take to control post-operative nausea and pain. You will start this tomorrow. - If you have constipation you should take Colace or Miralax (both [id number]). It takes most people 3-4 days to have a bowel movement. Follow-up: 2 weeks If you have any acute concerns or questions, please do not hesitate to contact the office at [phone]. You may contact Dr. Box with any questions after hours through the hospital at [phone] or on his cell phone at [phone]. Stand Alone Forms: Anes.Nerve Block Instructions, [facility] Holm ([facility]) Referrals: Andrea Box MD [ [facility] STAFF PHYSICIAN] - 02/07/23 10:45 am Equipment/Supplies: Walker Activity:: Activity as Tolerated Shower/Bathe:: 72 hours Diet:: As Tolerated Discharge Orders Discharge Orders: Discharge Order (Routine); Ordered 01/23/23 Ordered By: Andrea Box
--- NOTE | 2023-01-23 16:06 | PT.INIE ---
PT Notes Visit Reasons: L TKR Physical Therapy Day Surgery Initial Evaluation Date: 01/23/2023 Referring Doctor: DUNCAN Beard PT Orders: PT CONSULT: S/P Ortho surgery Precautions: WBAT on left LE with AD Patient Profile/Admitting Diagnosis: Kandace is a 77-year-old female with degenerative joint disease of the left knee and status post left total knee arthroplasty on postoperative day 0. PMHX: Medical History?(Updated 01/17/23 @ 13:27 by Kaelyn Witt) Chronic cough Dyspepsia Eczema History of breast cancer Ductal carcinoma in situ History of elevated antinuclear antibody (DELICIA) Hyperlipidemia Hypertension Hypothyroidism s/p DOTSON thyroid Stress incontinence Varicose vein of leg Surgical History?(Updated 01/17/23 @ 13:29 by Kaelyn Witt) Cataracts, bilateral History of lumpectomy of both breasts Hx of tonsillectomy Social History/Home Situation: Lives alone in a private home with 4 steps to enter with a rail on one side and a wall and logs on the other side to hold onto. Will have the help of friends and family as she recovers at home. Equipment Owned/DME: None Subjective: Nurse Luz indicated patient is ready for PT eval. Reports 1?2/10 pain on the left knee with weight bearing. Denies headache, chest pain, and lightheadedness throughout session. [place] stiff initially but was more loose after mobility performance. Objective: General Observation: Resting in bed. Eder wrap to left LE. Cryocuff to left knee. TEDS to right leg. Mental Status: Alert and oriented x4 Pain: 1?2/10 pain on the left knee ROM: Right Lower Extremity: Hip flexion WFL. Hip abduction WFL. Knee flexion WFL. Ankle dorsiflexion WFL. Ankle plantarflexion WFL. Left Lower Extremity: Hip flexion WFL. Hip abduction WFL. Knee flexion about 10 degrees to 100 degrees. Knee extension -10 degrees. Ankle dorsiflexion WFL. Ankle plantarflexion WFL. Strength: Right Lower Extremity: Hip flexors 5/5. Hip abductors 5/5. Knee flexors 5/5. Knee extensors 5/5. Ankle dorsiflexors 5/5. Ankle plantarflexors 5/5. Left Lower Extremity:Hip flexors 4/5. Hip abductors 4/5. Knee flexors 3-/5. Knee extensors 3-/5. Ankle dorsiflexors 5/5. Ankle plantarflexors 5/5. Sensation: Intact as to pain and light pressure in bilateral lower extremities Bed Mobility/Transfers: Supine to sit standby assist Sit to stand contact-guard assist Stand to sit contact-guard assist Gait: Tolerated level surface ambulation of 150 feet with step through gait pattern requiring contact-guard assist using front wheeled walker. No LOB. No SOB. No knee buckling on L. Stairs: Ascended and descended 6 x 4 inch steps and 4 x 6 inch steps holding onto bilateral rails with step to gait pattern requiring standby assist only with no report of increased pain. Balance: Static Sitting: Normal Dynamic Sitting: Normal Static Standing: Fair Dynamic Standing: Fair Special Tests: Mobility Limitations Standardized Measure [facility] AM-PAC 6 clicks Basic Mobility Inpatient Short Form: Raw Score: 21 CMS Score: 29% deficit Informed Consent/Education: Patient instructed in purpose of PT consult. Packet containing TKA exercise protocol has been given to patient. Education and training on initial set of exercises that can be done at home have been completed with patient. Access Code: [email or web address] URL: [email or web address] Date: 01/23/2023 Prepared by: Rhianna Arroyo Exercises - Supine Quad Set - 1 x daily - 7 x weekly - 1 sets - 10 reps - 5 hold - Supine Heel Slide - 1 x daily - 7 x weekly - 1 sets - 10 reps - 5 hold - Supine Ankle Pumps - 1 x daily - 7 x weekly - 1 sets - 10 reps - 5 hold - Small Range Straight Leg Raise - 1 x daily - 7 x weekly - 1 sets - 10 reps - 5 hold - Seated March - 1 x daily - 7 x weekly - 1 sets - 10 reps - 5 hold Assessment: Patient requires the use of a front wheeled walker to maximize independence and reduce fall risk. Patient presents with clinical signs and symptoms consistent with current/admitting diagnoses that have resulted to mobility limitations, gait instability, generalized weakness, and impairment of motor control as demonstrated by the following impairment level findings: 1. Decreased strength to left knee major muscle groups 2. Impaired standing balance 3. Limitation of joint range of motion in left knee Impairments are contributing to the following functional limitations: 1. Inability to safely ambulate without assistive device 2. Increase completion time for mobility ADL performance 3. Increased fall risk Patient is assessed as a 37312 moderate complexity based on the following: History: 77-year-old female with impairment level findings, functional limitations, and past medical history as indicated above Examination: Demonstrable impairment in strength, balance, and mobility level with underlying impairments and functional limitations as documented above Presentation: Evolving [employer] Makin moderate complexity Goals: N/A. PT evaluation and 1-2 treatment sessions only for functional mobility training using recommended AD and for HEP instruction. Plan of Care/Treatment Plan: N/A. PT evaluation and 1-2 treatment session only for functional mobility training using recommended AD and for HEP instruction. DISCHARGE RECOMMENDATIONS: Home when medically cleared by orthopedic surgeon. Recommend outpatient PT services to optimize functional mobility outcomes and facilitate return to independent community ambulation without an assistive device. TREATMENT CODE/TIME: 39200 x 20 minutes, 9753 0 x 16 minutes beginning at 14:45 PM. Thank you for the opportunity to participate in the care of this patient. Rhianna Arroyo PT, DPT, CLT [facility] [place], [place]
== END 2023-01-23 15:50 | disposition home or self-care (01) ==
PROVIDERS: PCP Nurse Practitioner Family; Visit Provider Student in an Organized Health Care Education/Training Program
PROC: (CPT 27447; principal; 2023-01-23 11:00)
DX: M17.12 Unilateral primary osteoarthritis, left knee (principal); E78.5 Hyperlipidemia, unspecified; E03.9 Hypothyroidism, unspecified; I10 Essential (primary) hypertension
CPT/HCPCS: 27447; 76942; 97162; 97530; J0690; J1100; J2001; J2250; J2405

== ENCOUNTER 2023-02-07 11:16 | Outpatient (CLI) | payer OTHER, SELFPAY ==
--- NOTE | 2023-02-07 10:30 | DI.RAD_ITS ---
Exam(s) XR KNEE LT 1V XR STANDING ALIGNMENT EXAM: XR STANDING ALIGNMENT and XR knee LT 1 V CLINICAL HISTORY: 1ST POST OP S/P L TKA. TECHNIQUE: 2D digital imaging was performed. Five images were obtained. COMPARISON: CR XR STANDING ALIGNMENT from 12/03/2022 CR XR KNEE LT 1V from 01/17/2023 CR XR KNEE LT 1V from 02/07/2023 FINDINGS: BONES: There are mild degenerative changes of the hips. The patient has had an interval left total k nee replacement. The orthopedic hardware is in good position. No evidence of hardware failure is se en. There are degenerative changes seen in the right knee characterized by joint space narrowing and osteophytes. The ankles are well maintained.There is no significant leg length discrepancy. SOFT TISSUE: Normal. IMPRESSION: Status post left total knee replacement. DATA REPOSITORY: RADIATION DOSE DELIVERED:
== END 2023-02-07 11:17 | disposition home or self-care (01) ==
LOC: DIORS 11:16
PROVIDERS: PCP Nurse Practitioner Family; Visit Provider Physician Assistant
DX: Z96.652 Presence of left artificial knee joint (principal); Z47.1 Aftercare following joint replacement surgery
CPT/HCPCS: 73560; 77073

== ENCOUNTER 2023-07-23 12:49 | Outpatient (REF) | payer OTHER, SELFPAY ==
[2023-07-23 14:58] LABS: Calculated LDL 149 mg/dL (<100); Cholesterol 230 mg/dL (<200); HDL Cholesterol 71 mg/dL (40-60); TSH (W/Ref FT4) 0.91 uIU/mL (0.36-3.74); Triglyceride 51 mg/dL (<150)
== END 2023-07-23 12:50 | disposition home or self-care (01) ==
LOC: NCHCN 12:49
PROVIDERS: PCP Nurse Practitioner Family; Visit Provider Nurse Practitioner Family
DX: E03.9 Hypothyroidism, unspecified (principal); E78.5 Hyperlipidemia, unspecified
CPT/HCPCS: 80061; 84443

== ENCOUNTER → 2023-08-06 02:56 | Outpatient (CLI) | payer OTHER, SELFPAY ==
--- NOTE | 2023-08-06 10:59 | DI.MAMMO_ITS ---
Exam(s) MG MAMMO SCREENING 60 MIN DUR EXAM: MG MAMMO SCREENING 60 MIN DUR CLINICAL HISTORY: SCREENING, PERSONAL H/O BREAST CANCER, Z00.00, Z85.3 TECHNIQUE: Mammograms were interpreted according to the usual protocol including computer analysis w [employer] CAD system, tomosynthesis and C-view imaging. COMPARISON: 2013 through 2022 FINDINGS: The breasts are composed of heterogeneously dense fibroglandular densities, Breast Density category C . No suspicious masses or suspicious microcalcifications are seen. No skin thickening or abnormal axillary lymph nodes are seen. There has been no significant change from prior exams. IMPRESSION: BI-RADS Category 1, Negative mammogram. Yearly screening mammography is recommended. Breast Density Category C, heterogeneously Dense. The mammogram demonstrates the patient's breast tissue is dense. Dense breast tissue is very common a nd is not abnormal but dense breast tissue can make it harder to find cancer on a mammogram. Also, de nse breast tissue may increase breast cancer risk. This information about the result of the mammogram report was provided to the patient to raise their awareness. Use this report when you speak with the patient about their risks for breast cancer, which includes their family history. At that time, you may recommend additional screening tests (Ultrasound or MRI) as they might be useful based on their r isk. A negative radiographic report should not delay biopsy if a dominant or clinically suspicious mass is present. Up to ten percent of cancers are not identified on mammography. A negative report may reinforce clinical impression. Adenosis and dense breasts may obscure an underlying neoplasm. False positive reports average 6 to 10%.
== END ==
PROVIDERS: PCP Nurse Practitioner Family; Visit Provider Nurse Practitioner Family
DX: Z12.31 Encounter for screening mammogram for malignant neoplasm of breast (principal); R92.333 Mammographic heterogeneous density, bilateral breasts; Z85.3 Personal history of malignant neoplasm of breast
CPT/HCPCS: 77063; 77067

== ENCOUNTER 2024-01-30 15:24 | Outpatient (CLI) | payer OTHER, SELFPAY ==
--- NOTE | 2024-01-30 15:39 | DI.RAD_ITS ---
Exam(s) XR KNEE LT 2V AP,LAT EXAM: XR KNEE LT 2V AP,LAT INDICATION: TKR follow up. COMPARISON: CR XR KNEE LT 1V from 02/07/2023 TECHNIQUE: 2D digital imaging was performed. Two views. FINDINGS: Stable alignment total knee prosthesis. No visible joint effusion. No suspicious bony lucencies. V enous varicosities noted medially. DATA REPOSITORY: RADIATION DOSE DELIVERED:
== END 2024-01-30 15:25 | disposition home or self-care (01) ==
LOC: DIORS 15:25
PROVIDERS: PCP Nurse Practitioner Family; Visit Provider Physician Assistant
DX: Z96.652 Presence of left artificial knee joint (principal); I83.92 Asymptomatic varicose veins of left lower extremity
CPT/HCPCS: 73560

== ENCOUNTER 2024-03-20 07:08 | Emergency (ER) | payer OTHER, SELFPAY ==
[2024-03-20] VITALS (29 sets, daily range): BP systolic 124–177; BP diastolic 65–102; PULSE 86–109; RESP 14–29; TEMP 36.1; O2SAT 91–97
--- NOTE | 2024-03-20 07:15 | RT.EKG_ITS ---
APPROVED REPORT Exam: Resting ECG Reason for Exam: Shoulder pain Patient Location: E HR:102 bpm ECG Measurements Heart Rate 102 AXIS ME 138 P 84 QRSd 99 QRS 68 QT 356 T 60 QTc 458 Conclusion Sinus rhythm...normal P axis, V-rate 60- 99 Narrow complex sinus tachycardia at a rate of 102. Normal axis. Intervals within normal limits. Di ffuse ST segment depressions inferior leads and in leads V4 through V6. Mild ST segment elevation in aVR. No prior for comparison. Not meeting STEMI nor occlusion [place] criteria.
[2024-03-20 07:44] LABS: Abs Immature Grans 0.03 10^3/uL (0.0-0.06); Absolute Basophil Count 0.06 10^3/uL (0.0-0.2); Absolute Eosinophil Count 0.07 10^3/uL (0.0-0.7); Absolute Lymphocyte Count 0.28 10^3/uL (1.2-3.4); Absolute Monocyte Count 1.21 10^3/uL (0.1-0.8); Basophils % 0.8 %; HCT 37.9 % (36.0-46.0); Immature Grans % 0.4 %; Lymphocytes % 3.8 %; MCH 28.5 pg (27.0-33.0); MCHC 31.7 % (32.0-36.0); MCV 90 fL (80-95); MPV 10.4 fL (8.0-11.0); Monocytes % 16.5 %; Neutrophils % 77.5 %; Platelet Count 238 10^3/uL (130-400); RBC 4.21 10^6/uL (3.93-5.22); RDW 12.8 % (11.7-14.6); RDW-SD 42.5 fL; WBC 7.35 10^3/uL (4.4-10.8)
[2024-03-20] MEDS: Aspirin 81 MG CHEW 324 MG CH (07:58)
--- NOTE | 2024-03-20 07:59 | ED.GENADUL_ITS ---
Discharge Plan Disposition Patient Disposition: Home Discharge Details Clinical Impression: SARS-CoV-2 positive Primary Care Provider: Kavita Tapia ED Provider: Jordan Valerio Home Meds and New Rx's Prescriptions: Continued losartan 25 mg tablet 25 mg PO HS cetirizine 10 mg tablet 10 mg PO DAILY PRN cholecalciferol (vitamin D3) 50 mcg (2,000 unit) capsule 50 mcg PO DAILY levothyroxine 25 MCG tablet 12.5 mcg PO DAILY acetaminophen 500 mg tablet 1,000 mg PO TID Qty: 90 3RF Discharge Instructions Instructions: COVID-19 in adults - Discharge instructions Additional Instructions: You are seen in the emergency department for your back and shoulder pain. Your blood work showed no sign of heart attack. You are found to be COVID-positive. Please quarantine at home for the next 5 days or until your home COVID test is negative which ever comes first. Please return to the emergency department if you develop increasing shortness of breath cannot eat or drink as result of nausea or vomiting or if you have any other concerns. Please also purchase a home pulse oximeter to monitor oxygen levels and return to the emergency department if your oxygen level at rest is less than 92% while you are breathing room air. Discharge Data Discharge Date/Time-TO BE ENTERED AT DEPARTURE: 03/20/24 11:22 HPI General Date/Time Provider Initiated Documentation: 03/20/24 07:16 . HPI Narrative: MDM This is a mildly tachycardic 78-year-old female with history of hypertension and shoulder pain with ST segment depressions on ECG concerning for the possibility of ACS for which she will receive aspirin and nitroglycerin. Aortic dissection is also a possibility so we will complete CT angiogram. PE less likely given no shortness of breath however the patient is tachycardic so we will send a D- dimer. No cough to suggest pneumonia. No history of emesis to suggest in creased risk for esophageal rupture. Not hypotensive nor dialysis patients without tamponade. No rash to shoulders to suggest zoster. Given no shortness of breath no trauma doubt pneumothorax however will obtain a chest x-ray. Patient has full range of motion in her shoulder so I am not concerned for septic joint. No erythema to suggest cellulitis. No fluctuance to suggest abscess. 8 AM Initial troponin 10 ng/L. Comprehensive metabolic panel showing no LILLY. Very mild hyperglycemia no anion gap normal bicarbonate?/not consistent with DKA. No LFT abnormalities. CBC lacks anemia thrombocytopenia and leukocytosis. 9:24 AM Repeat troponin with delta of 4 not meeting threshold for acute injury pattern. 11: 07 AM Repeat troponin with reassuring delta. Patient's COVID swab returned positive. I met with the patient. She was not hypoxic. She reported that she never had COVID in the past but that she was vaccinated. We discussed whether or not to treat her with Paxlovid. She declined. I advised her to return to the emergency department if she developed worsening shortness of breath fevers chills nausea vomiting or could not tolerate p.o. I advised her to purchase a home pulse oximeter. She understood her return indications were discharged with empiric trial of expectant outpatient management. Chronic conditions affecting the care of the patient: Joint pain History obtained from an outside historian: N/A External record review: [facility] [place] EMR Diagnostic interpretations performed by me: Per my independent interpretation chest x-ray shows: No acute cardiopulmonary process Per my independent interpretation EKG shows: Narrow complex sinus tachycardia at a rate of 102. Normal axis. Intervals within normal limits. Diffuse ST segment depressions inferior leads and in l robbi V4 through V6. Mild ST segment elevation in aVR. No prior for comparison. Not meeting STEMI nor occlusion [place] criteria. 8:12 AM Repeat ECG showing narrow complex normal sinus rhythm at a rate of 95. Normal axis. Intervals within normal limits. Slightly improved diffuse ST segment depressions. No ST segment elevations. No acute injury pattern. ]Medications: Aspirin nitroglycerin Social determinants of health affecting disposition: N/A Management discussed with: N/A Treatment/interventions considered: Antiviral treatment Response to therapies provided: N/A HPI This is a 78-year-old female with a history of hypertension arrived to the emergency department via private vehicle in the setting of pain between her shoulders extending down to her buttocks that began at rest yesterday evening. Patient describes sharp consistent pain. She denies any specific trauma. She denies chest pain nausea vomiting fevers and shortness of breath. She has had some headaches and some cough. No recent falls. No family history of coronary artery disease. No personal history of coronary artery disease hyperlipidemia and diabetes. Denies routine tobacco, ethanol, and illicits. No family history of premature coronary artery disease. Exam General: Well-appearing in no acute distress speaking in complete sentences. Head: Normocephalic, atraumatic. Eye: Extraocular eye movements intact. No conjunctival injection. No scleral icterus. Ear, nose, mouth, throat: Grossly normal inspection. Normal voice, handling secretions normally. Neck: Trachea midline. Cardiovascular: Well-perfused distal extremities. Regular rate and rhythm Respiratory: Nonlabored respiration. Clear lungs bilaterally Gastrointestinal: Nondistended abdomen. Soft nontender. Back: No back tenderness. No rash to back. No step-offs. No deformities. Musculoskeletal: No edema. Moving all 4 extremities spontaneously. Full range of motion bilateral shoulders. Bilateral shoulders nontender. No rash to shoulders. Skin: Normal for age and race, grossly normal temperature and turgor. No acute rash. Neurologic: Alert and appropriate, no apparent acute deficits. Psychiatric: Mood and manner are appropriate. Grooming and personal hygiene are appropriate. Related Data Home Medications ?Medication ?Instructions ?Recorded ?Confirmed levothyroxine 25 mcg tablet 12.5 mcg PO DAILY 10/28/13 03/20/24 cetirizine 10 mg tablet 10 mg PO DAILY PRN 12/03/22 03/20/24 losartan 25 mg tablet 25 mg PO HS 12/03/22 03/20/24 acetaminophen 500 mg tablet 1,000 mg (2 x 500 mg) PO TID #90 01/23/23 03/20/24 tabs cholecalciferol (vitamin D3) 50 50 mcg PO DAILY 03/29/23 03/20/24 mcg (2,000 unit) capsule Previous Rx's ?Medication ?Instructions ?Recorded acetaminophen 500 mg tablet 1,000 mg (2 x 500 mg) PO TID #90 01/23/23 tabs Allergies Allergy/AdvReac Type Severity Reaction Status Date / Time erythromycin base AdvReac Intermediate Nausea Unverified 03/20/24 07:17 (Erythromycin Base) General Stated Complaint: Nk/Back Pain MADDI: 3 Course Vital Signs Vital signs: Vital Signs Temperature 36.1 C L 03/20/24 07:10 Pulse 103 H 03/20/24 07:10 Respiratory Rate 18 03/20/24 07:10 Blood Pressure 177/83 H 03/20/24 07:10 Pulse Oximetry 95 03/20/24 07:10 Temperature 36.1 C L 03/20/24 07:10 Temperature Source Tympanic 03/20/24 07:10 Pulse 103 H 03/20/24 07:10 Respiratory Rate 18 03/20/24 07:10 Respiratory Effort Normal, Non-Labored 03/20/24 07:42 Blood Pressure 177/83 H 03/20/24 07:10 Blood Pressure Position Sitting 03/20/24 07:10 Pulse Oximetry 95 03/20/24 07:10 Oxygen Delivery Method Room Air 03/20/24 07:10 Oxygen Flow Rate 0 03/20/24 07:10 Pain Level 9 03/20/24 07:10 Lab/Test Results Lab/Test Results: Laboratory Tests Range/Units 03/20/24 07:30 WBC (4.4-10.8) 10^3/uL 7.35 RBC (3.93-5.22) 10^6/uL 4.21 Hgb (11.2-15.7) g/dL 12.0 Hct (36.0-46.0) % 37.9 MCV (80-95) fL 90 MCH (27.0-33.0) pg 28.5 MCHC (32.0-36.0) % 31.7 L RDW (11.7-14.6) % 12.8 Plt Count (130-400) 10^3/uL 238 MPV (8.0-11.0) fL 10.4 Immature Gran % % 0.4 Neutrophils % % 77.5 Lymphocytes % % 3.8 Monocytes % % 16.5 Eosinophils % % 1.0 Basophils % % 0.8 Nucleated RBC % (0.0-0.3) % 0.0 Absolute Neutrophils (1.2-6.7) 10^3/uL 5.70 Absolute Lymphocytes (1.2-3.4) 10^3/uL 0.28 L Absolute Monocytes (0.1-0.8) 10^3/uL 1.21 H Absolute Eosinophils (0.0-0.7) 10^3/uL 0.07 Absolute Basophils (0.0-0.2) 10^3/uL 0.06 Medical Decision Making Quality:SDOH Health Related Social Needs: No Data to Display PFSH All Active Problems (Updated 03/20/24 @ 11:08 by Jordan Valerio MD) SARS-CoV-2 positive (Acute) History of total left knee replacement (Acute 01/23/23) Disorder of sacrum (Acute) Spondylosis of lumbar region without myelopathy or radiculopathy (Acute) Lumbosacral spondylosis without myelopathy (Acute) Medical History (Updated 03/20/24 @ 11:08 by Jordan Valerio MD) Chronic cough Eczema History of breast cancer Ductal carcinoma in situ Hyperlipidemia Varicose vein of leg Dyspepsia Stress incontinence History of elevated antinuclear antibody (DELICIA) Hypertension Hypothyroidism s/p DOTSON thyroid Surgical History (Updated 02/07/23 @ 10:38 by Buck Blanc RN) Cataracts, bilateral History of lumpectomy of both breasts Hx of tonsillectomy Social History Smoking/Tobacco Use Status: Former Tobacco Use Quit Date: 07/01/69 Smoking risk assessment performed?: Yes Alcohol Intake: current Alcohol Intake frequency: a few times a week Alcohol type: beer Drug use: Never Substance use type: does not use Housing: house Do you feel safe at home: Yes Do you feel safe in your relationship?: Yes PAWSS Have you Been Recently Intoxicated or Drunk Within the Last 30 days?: No Have you Ever Experienced Previous Episodes of Alcohol Withdrawal?: No Have you ever Experienced Withdrawal Seizures?: No Have you ever Experienced Delirium Tremens(DT)s?: No Have you ever undergone Alcohol Rehabilitation Treatment (i.e, inpt ot outpatient treatment programs)?: No Have you ever Experienced Blackouts?: No Have you ever Combined Alcohol with other Downers within the last 90 days?: No Have you ever Combined Alcohol with any other Substance of Abuse during the last 90 days?: No Positive Blood Alcohol level on Presentation? [PCS.BAL]: No Evidence of Increased Autonomic Activity (i.e. HR>120, tremor, sweating, agitation, nausea)?: No Result: 0 POCUS Exam (ED) Limited Cardiac Exam DATE OF EXAM: 03/20/24 TIME OF EXAM: 09:53 PROVIDER THAT PERFORMED THE STUDY: Jordan Valerio IS THIS A REPEAT EXAM DURING THIS ENCOUNTER: no REASON FOR EXAM: Other indication: Back pain VISUALIZED STRUCTURES: Four Chambers, Left ventricle, LVOT and Other structure: Anterior lungs bilaterally VIEW OBTAINED: Apical 4-Chamber, Parasternal long-axis and Subxiphoid PERTINENT FINDINGS/IMPRESSION: No pericardial effusion and No RV dilation DIFFERENTIAL DIAGNOSES: Aortic outflow track less than 4 cm, good squeeze, RV less than LV, no significant pericardial effusion. No B-lines bilaterally Exam complete
--- NOTE | 2024-03-20 08:00 | RT.EKG_ITS ---
APPROVED REPORT Exam: Resting ECG Reason for Exam: shoulder pain Patient Location: E HR:95 bpm ECG Measurements Heart Rate 95 AXIS PA 135 P 54 QRSd 95 QRS 63 QT 375 T 31 QTc 470 Conclusion Sinus rhythm...normal P axis, V-rate 60- 99 Repeat ECG showing narrow complex normal sinus rhythm at a rate of 95. Normal axis. Intervals withi n normal limits. Slightly improved diffuse ST segment depressions. No ST segment elevations. No ac [place] injury pattern.
[2024-03-20 08:02] LABS: ALT 24 U/L (14-59); AST 22 U/L (15-37); Alkaline Phosphatase 82 U/L (46-116); Anion Gap 9.8 mmol/L (3-11); BUN 13 mg/dL (7-18); Bilirubin, Total 0.42 mg/dL (0.2-1.0); CO2 26.2 mmol/L (21.0-32.0); CREATININE 0.8 mg/dL (0.55-1.02); Calcium 9.1 mg/dL (8.5-10.1); Chloride 103 mmol/L (98-107); Estimated GFR 75.84 (mL/min/1.73m2); Glucose 109 mg/dL (74-106); Potassium 3.9 mmol/L (3.5-5.1); Sodium 139 mmol/L (136-145); Total Protein 7.9 g/dL (6.4-8.2); Troponin I 10 ng/L (<or=51)
--- NOTE | 2024-03-20 08:18 | DI.RAD_ITS ---
Exam(s) XR PORTABLE CHEST AP EXAM: XR PORTABLE CHEST AP CLINICAL HISTORY: Shoulder pain TECHNIQUE: 2D digital imaging was performed. COMPARISON: No exams were available for comparison FINDINGS: LUNGS: Mild peribronchial thickening. No focal infiltrate.. No pleural abnormality seen. HEART: Normal size. AORTA: Normal diameter. Pulmonary vasculature: Mildly prominent. BONES: Unremarkable for age. Soft tissues: Unremarkable. IMPRESSION: Mild pulmonary vascular prominence and peribronchial thickening could indicate mild CHF versus small airways disease. DATA REPOSITORY: RADIATION DOSE DELIVERED:
[2024-03-20 08:25] LABS: D-Dimer 1217 ng/mlFEU (<500)
[2024-03-20] MEDS: Normal Saline - Diluent 50 ML VIAL IJ (09:00)
[2024-03-20] MEDS: Omnipaque 350 MG/ML 500 ML BTL-Imaging package 100 ML IJ (09:02)
[2024-03-20 09:08] LABS: Troponin I 14 ng/L (<or=51)
--- NOTE | 2024-03-20 09:10 | DI.CT_ITS ---
Exam(s) CT CHEST PE CTA EXAM: CT CHEST PE CTA CLINICAL HISTORY: Chest pain tachycardia D-dimer. TECHNIQUE: Imaging Protocol: Axial CT angiography was performed with multi-slice acquisition and mu lti-planar reconstructions as well as axial, coronal and sagittal MIP reconstructions. CONTRAST MATERIAL: Intravenous: Omnipaque 350 Contrast volume:100 ml COMPARISON: No exams were available for comparison FINDINGS: Pulmonary Arteries: No evidence of filling defect to suggest pulmonary emboli. Tracheobronchial tree: No mucous plugging. Mediastinum and Katherine: No dominant adenopathy or fluid collection. Pulmonary parenchyma: No consolidation or dominant measurable mass. Dependent changes. Pleura: No effusion or pneumothorax. Heart: The heart is mildly dilated. Mild coronary artery calcifications are seen. Aorta: Thoracic aorta non-dilated. No dissection. Upper abdomen: No acute findings. Bones: Unremarkable for age. Tubes, Catheters, and Lines: None Soft tissues: Unremarkable. IMPRESSION: No evidence of pulmonary embolism or other acute abnormality. RADIATION DOSE DELIVERED: 95.36mGy.cm Total DLP DATA REPOSITORY: All CT scans at this facility are submitted to the National Radiology Data Registry (NRDR) Dose Index Registry (DIR) with the [employer] (A[employer]). RADIATION OPTIMIZATION: All CT scans at this facility use at least one of these dose optimization te chniques: automated exposure control; mA and/or kV adjustment per patient size (includes targeted exa ms where dose is matched to clinical indication); or iterative reconstruction.
[2024-03-20 10:12] LABS: Influenza A PCR Negative (Negative); Influenza B PCR Negative (Negative); RSV PCR Negative (Negative)
[2024-03-20 10:14] LABS: Source Nasopharynx
[2024-03-20 10:15] LABS: COVID-19 PCR Positive (Negative)
[2024-03-20 11:02] LABS: Troponin I 12 ng/L (<or=51)
[2024-03-20] MEDS: Acetaminophen 500 MG TAB 1000 MG PO (11:19)
== END 2024-03-20 11:22 | disposition home or self-care (01) ==
PROVIDERS: Emergency Provider Emergency Medicine; PCP Nurse Practitioner Family
DX: M54.6 Pain in thoracic spine (principal); U07.1 COVID-19; I10 Essential (primary) hypertension; E78.5 Hyperlipidemia, unspecified; R00.0 Tachycardia, unspecified; Z87.891 Personal history of nicotine dependence
CPT/HCPCS: 36415; 71275; 80053; 87637; 93005; 93308; 99285; 71045; 84484; 85025; 85379; 93010; 99284

== ENCOUNTER 2024-07-06 15:23 | Outpatient (REF) | payer OTHER, SELFPAY ==
[2024-07-06 15:44] LABS: COMMENT (LAB VIEW ONLY) 15.91 mg/dL
[2024-07-06 16:04] LABS: Calculated LDL 160 mg/dL (<100); Cholesterol 255 mg/dL (<200); HDL Cholesterol 73 mg/dL (40-60); Triglyceride 111 mg/dL (<150); Vitamin D 25 Total 15.7 ng/mL (30-100)
== END 2024-07-06 15:24 | disposition home or self-care (01) ==
LOC: NCHCN 15:23
PROVIDERS: PCP Nurse Practitioner Family; Visit Provider Nurse Practitioner Family
DX: I10 Essential (primary) hypertension (principal); E78.5 Hyperlipidemia, unspecified; E55.9 Vitamin D deficiency, unspecified
CPT/HCPCS: 80061; 82306; 82043; 82570

== ENCOUNTER 2024-07-27 19:49 | Outpatient (REF) | payer OTHER, SELFPAY ==
[2024-07-27 21:12] LABS: Abs Immature Grans 0.02 10^3/uL (0.0-0.06); Absolute Basophil Count 0.11 10^3/uL (0.0-0.2); Absolute Eosinophil Count 0.25 10^3/uL (0.0-0.7); Absolute Lymphocyte Count 1.65 10^3/uL (1.2-3.4); Absolute Monocyte Count 0.72 10^3/uL (0.1-0.8); Absolute Neutrophil Count 4.94 10^3/uL (1.2-6.7); Basophils % 1.4 %; Eosinophils % 3.3 %; HCT 40.5 % (36.0-46.0); HGB 12.7 g/dL (11.2-15.7); Immature Grans % 0.3 %; Lymphocytes % 21.5 %; MCH 28.9 pg (27.0-33.0); MCHC 31.4 % (32.0-36.0); MCV 92 fL (80-95); MPV 10.3 fL (8.0-11.0); Monocytes % 9.4 %; Neutrophils % 64.1 %; Platelet Count 281 10^3/uL (130-400); RBC 4.39 10^6/uL (3.93-5.22); RDW 12.5 % (11.7-14.6); RDW-SD 42.6 fL; WBC 7.69 10^3/uL (4.4-10.8)
[2024-07-27 21:51] LABS: ALT 24 U/L (14-59); AST 17 U/L (15-37); Alkaline Phosphatase 73 U/L (46-116); Anion Gap 5.5 mmol/L (3-11); BUN 15 mg/dL (7-18); Bilirubin, Total 0.21 mg/dL (0.2-1.0); CO2 31.5 mmol/L (21.0-32.0); CREATININE 0.8 mg/dL (0.55-1.02); Calcium 9.4 mg/dL (8.5-10.1); Chloride 105 mmol/L (98-107); Estimated GFR 75.84 (mL/min/1.73m2); Ferritin 69 ng/mL (8-252); Glucose 98 mg/dL (74-106); Potassium 4.5 mmol/L (3.5-5.1); Sodium 142 mmol/L (136-145); TSH (W/Ref FT4) 1.78 uIU/mL (0.36-3.74); Total Protein 7.5 g/dL (6.4-8.2); Vitamin B12 252 pg/mL (193-986)
[2024-07-27 22:04] LABS: Iron 53 ug/dL (50-170); Total Iron Binding Capacity 328 ug/dL (250-450); Transferrin Sat 16 % (15-50)
== END 2024-07-27 19:50 | disposition home or self-care (01) ==
LOC: NCHCN 19:49
PROVIDERS: PCP Nurse Practitioner Family; Visit Provider Nurse Practitioner Family
DX: R53.83 Other fatigue (principal)
CPT/HCPCS: 80053; 82607; 82728; 83540; 83550; 84443; 85025

== ENCOUNTER 2024-08-14 00:24 | Outpatient (CLI) | payer OTHER, SELFPAY ==
--- NOTE | 2024-08-14 | DI.MAMMO_ITS ---
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 TECHNIQUE: Bilateral full field digital CC and MLO mammographic images were obtained with 3D tomosyn thesis and utilizing computer aided detection (CAD). COMPARISON: Prior mammograms were reviewed. FINDINGS: Fibroglandular tissue pattern is again noted be moderately dense, this somewhat decreasing the sensit ivity of the mammogram for finding hidden underlying lesions. There are stable appearing nodular densities in the upper outer quadrants of both breasts There are no new spiculated masses nor new malignant appearing microcalcification groups. There is no significant architectural distortion nor skin thickening-retraction. IMPRESSION: Benign findings. No radiographic evidence malignancy. BI-RADS Category 2 - Benign Findings Breast Density - Category C - Heterogeneously dense Breast density Category C or D implies that the patient has dense breast tissue. Dense breast tissue can make it harder to find cancer on a mammogram. Dense breast tissue is also associated with an incr eased risk of breast cancer. This information about the result of the mammogram report was provided to the patient to raise their awareness. Use this report when you speak with the patient about their risks for breast cancer, which includes their family history. At that time, you may recommend additional screening tests (Ultrasoun d or MRI) as these tests may add significant information. A negative radiographic report should not delay biopsy if a dominant or clinically suspicious mass is present. Up to ten percent of cancers are not identified on mammography. A negative report may reinforce clinical impression. Adenosis and dense breasts may obscure an underlying neoplasm. False positive reports average 6 to 10%. Patient will receive a letter notifying them of these results.
== END 2024-08-14 00:44 ==
LOC: DI 00:24
PROVIDERS: PCP Nurse Practitioner Family; Visit Provider Nurse Practitioner Family
DX: Z12.31 Encounter for screening mammogram for malignant neoplasm of breast (principal); D05.11 Intraductal carcinoma in situ of right breast; R92.333 Mammographic heterogeneous density, bilateral breasts
CPT/HCPCS: 77063; 77067

== ENCOUNTER 2024-09-25 00:48 | Outpatient (CLI) | payer OTHER, SELFPAY ==
--- NOTE | 2024-09-25 | DI.RAD_ITS ---
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 TECHNIQUE: 2D digital imaging was performed. Two views. COMPARISON: CR XR KNEE LT 2V AP,LAT from 01/30/2024 CR XR TIB/FIB RT from 09/25/2024 CR XR KNEE LT 3V AP,LAT,LEMUEL from 09/25/2024 FINDINGS: BONES: Stable appearance total knee prosthesis. No acute fracture is present. No bony destructive le mariela is seen. Joints: Of the ankle joint space is maintained. SOFT TISSUE: Venous varicosities in the medial soft tissues. Lower leg edema. IMPRESSION: Stable appearance of left knee prosthesis. Lower leg edema. DATA REPOSITORY: RADIATION DOSE DELIVERED:
--- NOTE | 2024-09-25 | DI.RAD_ITS ---
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 TECHNIQUE: 2D digital imaging was performed. Two views. COMPARISON: CR XR STANDING ALIGNMENT from 02/07/2023 FINDINGS: BONES: No acute fracture is present. No bony destructive lesion is seen. There are moderate degenerat kamila changes at the knee. The ankle is unremarkable. There are heel spurs. SOFT TISSUE: Venous varicosities in the medial soft tissues. Lower leg edema. IMPRESSION: Moderate degenerative changes of the knee. Lower leg edema. DATA REPOSITORY: RADIATION DOSE DELIVERED:
--- NOTE | 2024-09-25 14:10 | DI.RAD_ITS ---
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 TECHNIQUE: 2D digital imaging was performed. Three views. COMPARISON: CR XR KNEE LT 3V AP,LAT,LEMUEL from 09/25/2024 FINDINGS: BONES: No acute fracture is present. No bony destructive lesion is seen. Enthesophyte at the upper pole of the patella. Spurring at the tibial spines. JOINTS: Moderate narrowing the medial femoral tibial joint space and mild narrowing of the lateral fe moral tibial joint space. Periarticular spurring is noted throughout. The patellofemoral joint is a lso narrowed. No joint effusion is seen. SOFT TISSUE: Venous varicosities in the medial soft tissues. IMPRESSION: Moderate degenerative changes. DATA REPOSITORY: RADIATION DOSE DELIVERED:
== END 2024-09-25 01:08 ==
LOC: DI 00:48
PROVIDERS: PCP Nurse Practitioner Family; Visit Provider Nurse Practitioner Family
DX: M17.11 Unilateral primary osteoarthritis, right knee (principal)
CPT/HCPCS: 73562; 73590

== ENCOUNTER 2024-11-13 14:19 | Outpatient (REF) | payer OTHER, SELFPAY ==
[2024-11-13 14:25] LABS: Hemoglobin A1C 5.7 % (<5.7)
[2024-11-16 12:30] LABS: Albumin 59.9 % (55.8-66.1); Albumin g/dL 4.6 g/dL (3.6-5.2); Total Protein 7.6 g/dL (6.3-8.2)
== END 2024-11-13 14:20 | disposition home or self-care (01) ==
LOC: NCHCN 14:19
PROVIDERS: PCP Nurse Practitioner Family; Visit Provider Nurse Practitioner Family
DX: R20.2 Paresthesia of skin (principal)
CPT/HCPCS: 83036; 84165